=== PATIENT | male | born 1940 ===

== ENCOUNTER 2020-10-12 09:03 | Emergency (ER) | payer BC, MEDICARE ==
[2020-10-12 19:51] LABS: SARS-CoV-2 PCR by NAA Not Detected (NotDetected)
== END 2020-10-12 12:42 | disposition home or self-care (01) ==
LOC: ERS 09:03
DX: R53.1 Weakness (principal); I10 Essential (primary) hypertension; E78.5 Hyperlipidemia, unspecified; Z20.822 Contact with and (suspected) exposure to COVID-19; Z79.82 Long term (current) use of aspirin; Z79.899 Other long term (current) drug therapy
CPT/HCPCS: 71045; 99285; U0003; U0005